=== PATIENT | female | born 2000 | race Caucasian/White ===

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

== ENCOUNTER 2019-02-22 01:17 | Emergency (ER) | payer OTHER | END 2019-02-22 05:45 | disposition home or self-care (01) | LOC: FTE 01:17 | DX: S09.90XA Unspecified injury of head, initial encounter (principal); J45.909 Unspecified asthma, uncomplicated; X58.XXXA Exposure to other specified factors, initial encounter; Y92.9 Unspecified place or not applicable | CPT/HCPCS: 71046; 99283-25 ==